=== PATIENT | male | born 1990 | race Caucasian/White ===

== ENCOUNTER 2019-08-21 21:03 | Emergency (ER) | payer MEDICAID ==
[~2019-08-21] VITALS: Ht 177.8 cm; Wt 81.8 kg
--- NOTE | 2019-08-21 21:17 | NUR ---
NEURO CONSULT ORDER IN , NEURO ROBOT IN ROOM TURNED ON WAITING FOR NEUROLOGIST, DR. MO AWARE
[2019-08-21 21:57] LABS: ALANINE AMINOTRANSFERASE 21 U/L (12-78); ALBUMIN 4.1 G/DL (3.4-5.0); ALBUMIN/GLOBULIN RATIO 1.1 (1.1-1.5); ALKALINE PHOSPHATASE 84 IU/L (46-116); ANION GAP 11 (8-16); ASPARTATE AMINO TRANSFERASE 24 U/L (10-37); BILIRUBIN,TOTAL 0.7 MG/DL (0.1-1.0); BLOOD UREA NITROGEN 15 MG/DL (7-18); BUN/CREATININE RATIO 22.4 (5.4-32.0); CALCIUM 9.3 MG/DL (8.5-10.1); CHLORIDE 103 MMOL/L (99-107); CREATININE 0.67 MG/DL (0.60-1.10); GLUCOSE 92 MG/DL (70-104); SODIUM 141 MMOL/L (135-145); TOTAL CARBON DIOXIDE 26.6 MMOL/L (24-32); eGFR > 90 ML/MIN
[2019-08-21] MEDS ORDERED: KEP500T PO (22:06)
[2019-08-21] MEDS ORDERED: LORazepam 1 MG tablet PO ONE (22:15)
--- NOTE | 2019-08-21 22:17 | NUR ---
PATIENT IS DISCHARGE READY FROM ED MD, PATIENT LIVES IN [place] DOES NOT HAVE RIDE BACK FROM [place], CHARGE NURSE AND NURSING WET MIX OPERATOR AWARE WORKING ON A DISCHARGE DISPOSITION
[2019-08-21 22:52] LABS: BASOPHILS % (AUTO) 0.4 % (0-1); EOSINOPHILS % (AUTO) 0.1 % (0-6); HEMATOCRIT 40.1 % (42.0-52.0); HEMOGLOBIN 13.4 g/dl (14.0-17.9); LYMPHOCYTES # (AUTO) 1.2 X10'3 (1.1-4.8); LYMPHOCYTES % (AUTO) 9.6 % (21-51); MEAN CORPUSCULAR HEMOGLOBIN 28.2 PG (27.0-31.0); MEAN CORPUSCULAR HGB CONC 33.5 g/dL (33.0-36.5); MEAN CORPUSCULAR VOLUME 84.3 FL (78-98); MEAN PLATELET VOLUME 7.6 FL (7.4-10.4); MONOCYTES # (AUTO) 0.7 X10'3 (0-0.9); MONOCYTES % (AUTO) 5.7 % (2-12); NEUTROPHILS # (AUTO) 10.9 X10'3 (1.8-7.7); NEUTROPHILS % (AUTO) 84.2 % (42-75); PLATELET COUNT 298 X10'3 (140-440); RED BLOOD COUNT 4.76 X10'6 (4.70-6.10); RED CELL DISTRIBUTION WIDTH 14.2 % (11.5-14.5); WHITE BLOOD COUNT 12.9 X10'3 (4.5-11.0)
--- NOTE | 2019-08-21 23:07 | NUR ---
SPOKE WITH ALYSSA ZIMMER RN , PATIENT STATES " I CAN GET A RIDE IN THE MORNING BUT IT IS TO LATE NOW." PATIENT WILL BE MOVED TO SIDE ROOM WHEN ED CLEARS OUT UNTIL A.M ALYSSA, NURSING SUP AWARE, PATIENT PROVIDED FOOD WATER BLANKETS RR EVEN UN LABORED NO OBSERVABLE S/S OF ACUTE STRESS OR WITNESS SIZURE ACTIVITY WILL CONTINUE TO MIONITOR
--- NOTE | 2019-08-22 00:31 | NUR ---
PATIENT PLACED IN HOSPITAL BED GIVEN MEAL WITH ICE WATER PITCHER FAMILY WILL BE CALLED IN THE A.M. FOR TRANSPORT, CHARGE NURSE AND NURSING EDUCATION PROGRAM ASSOCIATE AWARE, PATIENT RR EVEN UN LABORED NO OBSERVABLE S/S OF ACUTE STRESS AT THIS TIME
--- NOTE | 2019-08-22 02:35 | NUR ---
PATIENT LYING ON LEFT SIDE IN BED COVERS ON EYES CLOSED RR EVEN UN LABORED NO OBSERVABLE S/S OF ACUTE STRESS OR SEIZURE ACTIVITY AT THIS TIME WILL CONTINUE TO MONITOR
[2019-08-22 05:27] VITALS: BP 127/65
--- NOTE | 2019-08-22 06:29 | NUR ---
SBAR TO MARIO CLAYTON NO QUESTION OR CONCERNS AFTER ASSUMING CARE
--- NOTE | 2019-08-22 07:37 | NUR ---
Pt awake. Given phone to contact family.
--- NOTE | 2019-08-22 08:30 | NUR ---
Spoke to Mother on phone. States that she will find a ride and be able to pick him up as soon as possible, but notes that it is a [address] to [place].
--- NOTE | 2019-08-22 08:40 | NUR ---
Pt mother called back and spoke with UC. Requesting results of toxicology on pt. When she was told that we are unable to provide that information without permission from the pt to disclose it, she stated that if we did not tell her, she would not pick the pt up from the hospital. UC once again stated that we are not going to disclose this information without speaking to the pt, she requested to speak with the pt herself. Call was then transferred to pt's phone in his room.
[2019-08-22] MEDS ORDERED: ondansetron 4mg rapidly disintigrating tab PO ONE (10:05)
[2019-08-22] MEDS ORDERED: LORazepam 1 MG tablet PO ONE (10:05)
== END 2019-08-22 10:22 | disposition home or self-care (01) ==
LOC: ER 21:03
DX: S50.811A Abrasion of right forearm, initial encounter (principal); G40.909 Epilepsy, unspecified, not intractable, without status epilepticus; F17.200 Nicotine dependence, unspecified, uncomplicated; F11.90 Opioid use, unspecified, uncomplicated; Z72.89 Other problems related to lifestyle; Z88.2 Allergy status to sulfonamides; W18.39XA Other fall on same level, initial encounter; Y93.89 Activity, other specified; Y92.89 Other specified places as the place of occurrence of the external cause; Y99.8 Other external cause status
CPT/HCPCS: 36415; 80053; 85025; 99284